=== PATIENT | male | born 1960 | race Caucasian/White ===

== ENCOUNTER 2017-07-12 01:07 | Emergency (ER) | payer SELFPAY ==
[2017-07-12] MEDS: 0.9 % SODIUM CHLORIDE 1,000 ML IV ONE (01:20)
[2017-07-12] MEDS: ONDANSETRON HCL/PF 4 MG/ 2ML VIAL ONE (01:25)
[2017-07-12 01:57] LABS: eGFR (African) > 60; eGFR (Non-African) > 60
[2017-07-12 01:57] LABS: BASOPHILS % 1.2 (0.0-1.5); EOSINOPHILS % 3.6 % (0.0-6.8); MEAN CORPUSCULAR HEMOGLOBIN 31.1 pg (28.0-34.0); MEAN CORPUSCULAR VOLUME 94.6 fl (80.0-100.0); MONOCYTES % 7.3 % (0.0-11.0); NEUTROPHILS # 3.5 # k/uL (1.4-7.7)
--- NOTE | 2017-07-12 02:15 | Diagnostic Imaging Report ---
MATILDA GONZALEZ [facility] [address] [facility] [address] [place] [address]. [id number] Report Submission Date: Jul 12, 2017 1:45:08 AM CREDIT REPORTING CLERK Patient Study Name: NITISH VALENZUELA Date: Jul 12, 2017 1:34:43 AM CREDIT REPORTING CLERK Modality Type: CT\SR Gender: M Description: CT BRAIN W/O CONTRAST : 62 Institution: [facility] Physician: MATILDA GONZALEZ CT HEAD WO CONTRAST History: Unresponsive, head trauma. Technique: Standard noncontrast CT was performed with contiguous axial images acquired from skull base to vertex. Findings: There is no acute extra-axial fluid collection. Ventricles are of normal size, shape, and morphology. No mass effect or midline shift is present. No evidence of acute hemorrhage. The garcias-white matter differentiation is normal. The visualized portions of the orbits, and paranasal sinuses, and mastoids are normal. No fractures are identified. Impression: 1. No acute intracranial abnormality Electronically signed on Jul 12, 2017 1:45:08 AM CREDIT REPORTING CLERK by: Kosta Bello [facility] CENTERAndrey
--- NOTE | 2017-07-12 02:16 | Diagnostic Imaging Report ---
MATILDA GONZALEZ [facility] [address] [facility] [address] [id number] Report Submission Date: Jul 12, 2017 2:05:17 AM ROOFING SALES REPRESENTATIVE Patient Study Name: NITISH VALENZUELA Date: Jul 12, 2017 1:52:00 AM ROOFING SALES REPRESENTATIVE Modality Type: CR Gender: M Description: CHEST : 62 Institution: [facility] Physician: MATILDA GONZALEZ Chest, 1 view History: UNRESPONSIVE Findings: The left costophrenic angle is not included in this exam. The heart is enlarged. There is mild pulmonary vascular congestion is present. The mediastinum is prominent but this is likely due to portable supine AP technique. No pleural effusion or pneumothorax is identified. Impression: 1. Cardiomegaly and mild pulmonary vascular congestion. 2. Mediastinal prominence, likely due to portable supine AP technique. Electronically signed on Jul 12, 2017 2:05:17 AM ROOFING SALES REPRESENTATIVE by: Kosta JAEGER
--- NOTE | 2017-07-12 02:22 | ED Physician Documentation ---
General Adult - HISTORIAN Historian: paramedics - HPI Stated Complaint: LOC Chief Complaint: General Adult Onset: minutes Timing: still present Severity: severe Further Comments: yes (Pt is a 56 yo male with no diagnosed PMHx who became dizzy when getting up from bed to go to the bathroom. Pt called 911. When EMT' s arrived pt was found down with a cut on the L side of his forehead above his L eye. Pt vomited several times en route to ER. He was given Narcan tug boat captain, with little effect. On presentation in ER pt was hypertensive with LK=103/130. He was minimally interactive, stating that he was cold and wanted a blanket. His speech did not appear slurred. Pt has family hx of a brother who had a CVA due to Factor V Leiden. Pt was never tested for Factor V Leiden.) - ROS CONST: other (Pt unable to give ROS) - PAST HX Past History: other (no diagnosed PMHx) - SOCIAL HX Smoking History: other (smoking hx unknown) - FAMILY HX Family History: Yes (brother with Factor V Leiden) - REVIEWED ASSESSMENTS Nursing Assessment Reviewed: Yes Vitals Reviewed: Yes Progress - Progress Progress: Zofran 4 mg IV NS 1 L IVF Zofran [address] head w/o contrast: No acute intracranial abnormality. CXR: 1. Cardiomegaly and mild pulmonary vascular congestion. 2. Mediastinal prominence, likely due to portable supine AP technique. Transfer to [facility] Dr. Rosado. ED Results Lab/Radiology - Lab Results Lab Results: Lab Results 07/12/17 07/12/17 07/12/17 01:45 01:44 01:44 WBC 6.90 K/ul K/ul (4.00-12.00) RBC 4.94 M/ul M/ul (3.90-5.20) Hgb 15.3 g/dL g/dL (12.0-18.0) Hct 46.8 % % (37.0-53.0) MCV 94.6 fl fl (80.0-100.0) MCH 31.1 pg pg (28.0-34.0) MCHC 32.8 g/dL g/dL (30.0-36.0) RDW 12.8 % % (11.3-14.3) Plt Count 181 K/mm3 K/mm3 (130-400) Neut % (Auto) 50.4 % % (39.0-79.0) Lymph % (Auto) 34.8 % % (16.0-50.0) Mcdonald % (Auto) 7.3 % % (0.0-11.0) Eos % (Auto) 3.6 % % (0.0-6.8) Baso % (Auto) 1.2 (0.0-1.5) Neut # (Auto) 3.5 # k/uL # k/uL (1.4-7.7) Lymph # (Auto) 2.4 # k/uL # k/uL (0.6-4.0) Mcdonald # (Auto) 0.5 # k/uL # k/uL (0.0-0.9) Eos # (Auto) 0.2 # k/uL # k/uL (0.0-0.6) Baso # (Auto) 0.1 # k/uL # k/uL (0.0-0.5) Reactive Lymphs % 2.8 % % (0.0-5.0) Reactive Lymphs # 0.2 # k/uL # k/uL (0.0-0.8) Sodium 139 mmol/L mmol/L (136-145) Potassium 4.1 mmol/L mmol/L (3.5-5.1) Chloride 99 mmol/L mmol/L (98-107) Carbon Dioxide 26 mmol/L mmol/L (22-30) BUN 12 mg/dL mg/dL (9-20) Creatinine 1.00 mg/dL mg/dL (0.66-1.25) Est GFR ( Amer) > 60 (60 - ) Est GFR (Non-Af Amer) > 60 (60 - ) Glucose 155 mg/dL H mg/dL (74-106) Calcium 9.0 mg/dL mg/dL (8.4-10.2) Total Bilirubin 1.3 mg/dL mg/dL (0.2-1.3) AST 36 U/L U/L (15-46) ALT 18 U/L U/L (13-69) Alkaline Phosphatase 69 U/L U/L (38-126) Creatine Kinase 122 U/L U/L (55-170) Troponin I < 0.03 ng/mL L ng/mL (0.03-0.06) Total Protein 7.8 g/dL g/dL (6.3-8.2) Albumin 4.4 g/dL g/dL (3.5-5.0) - Orders Orders: ED Orders Category Date Time Status Continuous EKG monitoring Q30M Care 07/12/17 01:18 Active Continuous Pulse Oximetry Q30M Care 07/12/17 01:[address] IV Lock 1T Care 07/12/17 01:18 Active CHEST 1 VIEW [RAD] Stat Exams 07/12/17 01:[address] BRAIN W/O CONTRAST Stat Exams 07/12/17 Completed CBC/PLATELET/DIFF Routine Lab 07/12/17 01:45 Completed CMP Routine Lab 07/12/17 01:44 Completed CREATINE KINASE Routine Lab 07/12/17 01:44 Completed TROPONIN I (cTnI) Stat Lab 07/12/17 01:44 Completed Aspirin Med 07/12/17 01:18 Discontinued 324 mg PO NOW ONE Ondansetron HCl/Pf [Zofran 4 mg/2 ml] Med 07/12/17 01:24 Discontinued 4 mg .ROUTE .STK-MED ONE Oxygen Daily Oxygen 07/12/17 01:30 Ordered EKG WITH COMPARISON Stat Ther 07/12/17 01:18 Ordered General Adult Physical Exam - PHYSICAL EXAM GENERAL APPEARANCE: severe distress EENT: other (pupil sluggish, but reactive) NECK: normal inspection, supple RESPIRATORY: no resp distress, chest non-tender, breath sounds normal CVS: reg rate & rhythm, heart sounds normal ABDOMEN: soft, no organomegaly, decreased BS BACK: normal inspection, no CVA tenderness SKIN: other (laceration, ecchymosis L eyebrow) EXTREMITIES: non-tender, other (moves all extremities) NEURO: other (moves all extremities, DTR's wnl; unable to evaluate orientation/ sensation; obtunded.) Discharge Clincal Impression: LOC (loss of consciousness), ? CVA Referrals: Primary Doctor,No [Primary Care Provider] - Condition: Serious Disposition: XFER SHT-TRM HOSP Decision to Admit: NO Decision Time: 02:20
[2017-07-12] MEDS: ASPIRIN 81 MG CHEW TAB PO ONE (03:16)
[2017-07-12 03:26] VITALS: BP 212/117
[2017-07-12 07:21] LABS: APPEARANCE,URINE CLEAR (CLEAR); COLOR,URINE YELLOW (YELLOW); OCCULT BLOOD,URINE NEGATIVE (NEGATIVE)
[2017-07-12 07:22] LABS: UROBILINOGEN URINE 0.2 Eu (0.2-1.0)
== END 2017-07-12 02:20 | disposition short-term general hospital (02) ==
LOC: ED 01:07
DX: R55 Syncope and collapse (principal); S09.8XXA Other specified injuries of head, initial encounter; W19.XXXA Unspecified fall, initial encounter; Y92.009 Unspecified place in unspecified non-institutional (private) residence as the place of occurrence of the external cause
CPT/HCPCS: 51702; 70450; 71010; 80053; 81002; 82550; 84484; 85025; 93005; 96365; 96375; 96376; 99284; J2405; J7030; S1016